=== PATIENT | male | born 1995 | race Caucasian/White ===

== ENCOUNTER 2017-01-07 03:20 | Emergency (ER) | payer OTHER ==
[~2017-01-07] VITALS: Ht 177.8 cm; Wt 78.0 kg
[~2017-01-07 03:20] MED LIST: SERT50 PO
[2017-01-07 03:22] VITALS: BP 142/72; PULSE 82; RESP 16; TEMP 97.5; O2SAT 98
[2017-01-07] MEDS ORDERED: BACL10TA PO (04:14)
[2017-01-07] MEDS ORDERED: IBUP800T23 PO (04:14)
[2017-01-07] MEDS ORDERED: KETOROLAC TROMETHAMINE 60 MG/2 ML (IM) VIAL IM ONE (04:15)
[2017-01-07] MEDS ORDERED: ORPHENADRINE INJ 60 MG/2 ML AMP IM ONE (04:15)
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
[2017-01-07] MEDS ORDERED: ZOLO100T PO (04:29)
== END 2017-01-07 05:05 | disposition home or self-care (01) ==
LOC: NEPD 03:20
DX: S16.1XXA Strain of muscle, fascia and tendon at neck level, initial encounter (principal); V43.62XA Car passenger injured in collision with other type car in traffic accident, initial encounter; F32.9 Major depressive disorder, single episode, unspecified
CPT/HCPCS: 96372; 99283; J1885; J2360